=== PATIENT | female | born 2000 | race Caucasian/White ===

== ENCOUNTER 2020-01-06 20:01 | Emergency (ER) | payer BC, OTHER ==
[2020-01-06] MEDS ORDERED: KETOROLAC 30 MG/ML 1 ML VIAL IM STA (20:18)
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
--- NOTE | 2020-01-06 20:57 | XR ---
EXAMINATION TYPE: XR hand complete RT DATE OF EXAM: 01/06/2020 COMPARISON: NONE HISTORY: Injury. Pain in the thumb. TECHNIQUE: 3 views FINDINGS: I see no fracture nor dislocation. Joint spaces are normal. Soft tissues appear normal. Met acarpals are intact. IMPRESSION: Negative right hand exam.
[2020-01-06 21:36] VITALS: BP 129/91; PULSE 95; RESP 17; TEMP 98.4
== END 2020-01-06 21:36 | disposition home or self-care (01) ==
LOC: EC 20:01
DX: S69.91XA Unspecified injury of right wrist, hand and finger(s), initial encounter (principal); X58.XXXA Exposure to other specified factors, initial encounter; Y92.69 Other specified industrial and construction area as the place of occurrence of the external cause; Y99.0 Civilian activity done for income or pay
CPT/HCPCS: 99283; 29125; 96372; 73130; J1885

== ENCOUNTER → 2020-01-08 | Outpatient (CLI) | payer OTHER ==
--- NOTE | 2020-01-08 12:16 | XR ---
EXAMINATION TYPE: XR wrist complete RT DATE OF EXAM: 01/08/2020 CLINICAL HISTORY: Pain after injury. TECHNIQUE: Frontal, lateral, scaphoid, and oblique images of the right wrist are obtained. COMPARISON: Right hand x-ray 2 days earlier. FINDINGS: There is no acute fracture/dislocation evident in the right wrist. The joint spaces in the right wrist appear within normal limits. The overlying soft tissue appears unremarkable. IMPRESSION: There is no acute fracture or dislocation in the right wrist.
== END | disposition home or self-care (01) ==
LOC: RADXRMAIN 11:55
PROVIDERS: ATTEND Emergency Medicine
DX: S63.501A Unspecified sprain of right wrist, initial encounter (principal); S63.601A Unspecified sprain of right thumb, initial encounter

== ENCOUNTER → 2020-01-15 | Outpatient (CLI) | payer OTHER ==
--- NOTE | 2020-01-15 11:03 | XR ---
Right hand and wrist history: Pain, trauma 3 views of the right hand and 4 views of the right wrist submitted Bone mineralization remarkable for some minimal sclerosis at the distal pole of the lunate, joint spa javier and alignment are maintained IMPRESSION: No fracture or dislocation. Sclerosis of the lunate may be normal variant, as clinically indicated wrist MRI could be performed for additional evaluation.
== END | disposition home or self-care (01) ==
LOC: RADXRMAIN 10:27
PROVIDERS: ATTEND Emergency Medicine
DX: S63.501A Unspecified sprain of right wrist, initial encounter (principal); S63.601A Unspecified sprain of right thumb, initial encounter

== ENCOUNTER → 2020-03-11 | Outpatient (CLI) | payer BC, OTHER ==
--- NOTE | 2020-03-12 09:30 | MR ---
MR right hand without contrast HISTORY: Pain Multiplanar multisequence imaging to the right hand with attention to the first digit. There is some fluid signal at the metacarpophalangeal joint. Fluid signal is present along the flexor pollicis longus tendon synovitis. There is some subcutaneous edema at the first digit at this level. Bone marrow signal is maintained. There is no evident fracture or dislocation. IMPRESSION: Findings consistent with tenosynovitis and possible capsular sprain.
== END | disposition home or self-care (01) ==
LOC: RADMRIMAIN 13:23
PROVIDERS: ATTEND Orthopaedic Surgery
DX: M25.531 Pain in right wrist (principal); S63.521D Sprain of radiocarpal joint of right wrist, subsequent encounter; S63.418D Traumatic rupture of collateral ligament of other finger at metacarpophalangeal and interphalangeal joint, subsequent encounter; M79.644 Pain in right finger(s)

== ENCOUNTER → 2020-03-25 | Outpatient (CLI) | payer BC, OTHER ==
--- NOTE | 2020-03-26 05:19 | MR ---
EXAMINATION TYPE: MR hand RT wo con DATE OF EXAM: 03/25/2020 COMPARISON: 03/11/2020 HISTORY: Thumb pain TECHNIQUE: Multiplanar multiecho imaging of the right thumb was performed without contrast. FINDINGS: On the STIR images there is 6 mm focus of increased signal in the head of the proximal phalanx of the thumb. The flexor pollicis longus tendon is intact. There is no significant fluid around the tendon. The ligaments at the first MP joint appear intact. There is mild first MP joint fluid. There is no e vidence of soft tissue mass. Joint fluid appears improved compared to old exam. There is also decreas ed fluid around the flexor pollicis tendon compared to old exam. IMPRESSION: Small area of focal edema in the head of the proximal phalanx of the right thumb. This appears new co mpared to old exam and could be small bone bruise. Mild joint fluid at the first MP joint consistent with mild synovitis there is improved compared to l ast exam. There is clearing of fluid around the flexor pollicis tendon compared to last exam.
== END | disposition home or self-care (01) ==
LOC: RADXRMAIN 12:47
PROVIDERS: ATTEND Orthopaedic Surgery
DX: M65.9 Synovitis and tenosynovitis, unspecified (principal); M89.8X2 Other specified disorders of bone, upper arm

== ENCOUNTER → 2020-05-20 | Outpatient (CLI) | payer BC, MEDICAID, OTHER | END | disposition home or self-care (01) | LOC: LABWHC1 10:12 | PROVIDERS: ATTEND Pediatrics Pediatric Infectious Diseases | DX: Z03.818 Encounter for observation for suspected exposure to other biological agents ruled out (principal) | CPT/HCPCS: U0003; C9803 ==

== ENCOUNTER 2020-11-14 16:10 | Emergency (ER) | payer MEDICAID, OTHER ==
[2020-11-14] MEDS ORDERED: MORPHINE SULFATE/PF 10MG/10ML VL IVP PRN (16:33)
--- NOTE | 2020-11-14 16:36 | ED ---
General Adult HPI - General Chief complaint: Shortness of Breath Stated complaint: Lump under lt breast,SOB Time Seen by Provider: 11/14/20 16:19 Source: patient Mode of arrival: ambulatory Limitations: no limitations - History of Present Illness Initial comments: Dictation was produced using [employer] dictation software. please excuse any grammatical, word or spelling errors. This patient was cared for during a federal and state declared state of emergency secondary to Covid 19 Chief Complaint: 20-year-old female presents to the emergency department for pleuritic chest pain History of Present Illness: 20-year-old female she presents today for pleuritic chest pain. Patient states she was seen at [facility] emergency room yes terday where she had a workup. She states she even got a computed tomography scan of her chest that showed pneumonia and pleural fluid. She states she is been having 3 days of the symptoms. She states it is sharp and worse with deep inspiration. She was given prescription for amoxicillin however wasn't able to fill her prescriptions due to address issues. She called her primary care physician who refused to write her a new prescription without seeing her in the office. Patient refused to go to the office to be seen and that is how she ended up in the emergency department. She has any history of coughing. No history of fevers or constitutional symptoms. 2 weeks ago she traveled to [facility]. She was not tested Covid recently. The ROS documented in this emergency department record has been reviewed and confirmed by me. Those systems with pertinent positive or negative responses have been documented in the HPI. All other systems are other negative and/or noncontributory. PHYSICAL EXAM: General Impression: Alert and oriented x3, not in acute distress HEENT: Normocephalic atraumatic, extra-ocular movements intact, pupils equal and reactive to light bilaterally, mucous membranes moist. Cardiovascular: Heart regular rate and rhythm Chest: Able to complete full sentences, no retractions, no tachypnea Abdomen: abdomen soft, non-tender, non-distended, no organomegaly Musculoskeletal: Pulses present and equal in all extremities, no peripheral edema Motor: no focal deficits noted Neurological: CN II-XII grossly intact, no focal motor or sensory deficits noted Skin: Intact with no visualized rashes Psych: Normal affect and mood ED course: 20 yo female presents with pleuritic chest pain. Vital signs upon arrival are within acceptable limits. She does have a low-grade temperature 99.2. Rest of vital signs are within acceptable limits. Patient requests we contact grandfather Willian. phone number is [phone] Laboratory evaluation obtained. Mild leukocytosis 12.6. This is decreased since yesterday when patient reports she had a white count of 16. Metabolic panel is negative. Urine hCG is negative per coronavirus is negative. Chest x- ray is clear. Patient reevaluated bedside and found to be in stable medical condition. There is concern of possibly a component of pneumonia. Patient given a prescription for amoxicillin. She is told to follow up with primary care physician. Return Prevacid discussed. EKG interpretation: Ventricular rate 77, normal sinus rhythm, NH interval 134, QRS 96, QTC 425. No NH prolongation, no QTC prolongation, no ST or T-wave changes noted. . Overall, this EKG is unremarkable - Related Data Home Medications Medication Instructions Recorded Confirmed Acetaminophen Tab [Tylenol Tab] 500 - 1,000 mg PO Q6H PRN 11/14/20 11/14/20 Escitalopram [Lexapro] 10 mg PO DAILY 11/14/20 11/14/20 Immune Support Gummy 1 tab PO DAILY 11/14/20 11/14/20 Metoprolol Succinate [Toprol XL] 50 mg PO DAILY 11/14/20 11/14/20 Previous Rx's Medication Instructions Recorded Amoxicillin 1,000 mg PO Q8H 7 Days #28 capsule 11/14/20 HYDROcodone/APAP 5-325MG [Eagan 1 tab PO Q6HR PRN 3 Days #9 tab 11/14/20 5-325] Allergies Allergy/AdvReac Type Severity Reaction Status Date / Time No Known Allergies Allergy Verified 11/14/20 17:18 Review of Systems ROS Statement: Those systems with pertinent positive or pertinent negative responses have been documented in the HPI. ROS Other: All systems not noted in ROS Statement are negative. Past Medical History Past Medical History: Hypertension Additional Past Medical History / Comment(s): mthfr (mother fathers clotting disorder) History of Any Multi-Drug Resistant Organisms: None Reported Past Surgical History: Tonsillectomy Past Psychological History: No Psychological Hx Reported Smoking Status: Vaper Past Alcohol Use History: None Reported Past Drug Use History: None Reported General Exam Limitations: no limitations Course Vital Signs 11/14/20 16:11 Temperature 99.2 F Pulse Rate 89 Respiratory 17 Rate Blood Pressure 160/90 O2 Sat by Pulse 100 Oximetry Medical Decision Making - Lab Data Result diagrams: 11/14/20 16:38 11/14/20 16:38 Lab Results 11/14/20 11/14/20 11/14/20 Range/Units 16:38 16:38 16:38 WBC 12.6 H (3.8-10.6) k/uL RBC 4.44 (3.80-5.40) m/uL Hgb 12.5 (11.4-16.0) gm/dL Hct 36.6 (34.0-46.0) % MCV 82.5 (80.0-100.0) fL MCH 28.2 (25.0-35.0) pg MCHC 34.2 (31.0-37.0) g/dL RDW 12.6 (11.5-15.5) % Plt Count 391 (150-450) k/uL MPV 7.8 Neutrophils % 68 % Lymphocytes % 22 % Monocytes % 6 % Eosinophils % 2 % Basophils % 1 % Neutrophils # 8.6 H (1.3-7.7) k/uL Lymphocytes # 2.8 (1.0-4.8) k/uL Monocytes # 0.8 (0-1.0) k/uL Eosinophils # 0.3 (0-0.7) k/uL Basophils # 0.1 (0-0.2) k/uL Sodium 139 (137-145) mmol/L Potassium 4.2 (3.5-5.1) mmol/L Chloride 102 (98-107) mmol/L Carbon Dioxide 28 (22-30) mmol/L Anion Gap 9 mmol/L BUN 11 (7-17) mg/dL Creatinine 0.59 (0.52-1.04) mg/dL Est GFR (CKD-EPI)AfAm >90 (>60 ml/min/1.73 sqM) Est GFR (CKD-EPI)NonAf >90 (>60 ml/min/1.73 sqM) Glucose 101 H (74-99) mg/dL Plasma Lactic Acid Nicho 1.1 (0.7-2.0) mmol/L Calcium 9.2 (8.4-10.2) mg/dL Urine HCG, Qual (Not Detectd) Coronavirus (PCR) (Not Detectd) 11/14/20 11/14/20 Range/Units 16:39 16:50 WBC (3.8-10.6) k/uL RBC (3.80-5.40) m/uL Hgb (11.4-16.0) gm/dL Hct (34.0-46.0) % MCV (80.0-100.0) fL MCH (25.0-35.0) pg MCHC (31.0-37.0) g/dL RDW (11.5-15.5) % Plt Count (150-450) k/uL MPV Neutrophils % % Lymphocytes % % Monocytes % % Eosinophils % % Basophils % % Neutrophils # (1.3-7.7) k/uL Lymphocytes # (1.0-4.8) k/uL Monocytes # (0-1.0) k/uL Eosinophils # (0-0.7) k/uL Basophils # (0-0.2) k/uL Sodium (137-145) mmol/L Potassium (3.5-5.1) mmol/L Chloride (98-107) mmol/L Carbon Dioxide (22-30) mmol/L Anion Gap mmol/L BUN (7-17) mg/dL Creatinine (0.52-1.04) mg/dL Est GFR (CKD-EPI)AfAm (>60 ml/min/1.73 sqM) Est GFR (CKD-EPI)NonAf (>60 ml/min/1.73 sqM) Glucose (74-99) mg/dL Plasma Lactic Acid Nicho (0.7-2.0) mmol/L Calcium (8.4-10.2) mg/dL Urine HCG, Qual Not Detected (Not Detectd) Coronavirus (PCR) Not Detected (Not Detectd) Disposition Clinical Impression: Pleurisy Disposition: HOME SELF-CARE Condition: Fair Instructions (If sedation given, give patient instructions): Pleurisy (ED) Prescriptions: Amoxicillin 1,000 mg PO Q8H 7 Days #28 capsule HYDROcodone/APAP 5-325MG [Eagan 5-325] 1 tab PO Q6HR PRN 3 Days #9 tab PRN Reason: Severe Pain Is patient prescribed a controlled substance at d/c from ED?: Yes If prescribed controlled substance>3 days was MAPS reviewed?: Prescribed <3 Days Referrals: Nonstaff,Physician [REFERRING] - 1-2 days Time of Disposition: 18:03
[2020-11-14] MEDS ORDERED: fentaNYL (PF) 50 MCG/ML 5 ML AMP IVP STA (16:49)
[2020-11-14 16:55] LABS: Basophils # (A) 0.1 k/uL (0-0.2); Basophils % (A) 1 %; Eosinophils # (A) 0.3 k/uL (0-0.7); Eosinophils % (A) 2 %; HCT 36.6 % (34.0-46.0); HGB 12.5 gm/dL (11.4-16.0); Lymphocytes # (A) 2.8 k/uL (1.0-4.8); Lymphocytes % (A) 22 %; MCH 28.2 pg (25.0-35.0); MCHC 34.2 g/dL (31.0-37.0); MCV 82.5 fL (80.0-100.0); Mean Platelet Volume 7.8; Monocytes # (A) 0.8 k/uL (0-1.0); Monocytes % (A) 6 %; Neutrophils # (A) 8.6 k/uL (1.3-7.7); Neutrophils % (A) 68 %; Platelet Count 391 k/uL (150-450); RBC 4.44 m/uL (3.80-5.40); RDW 12.6 % (11.5-15.5); WBC 12.6 k/uL (3.8-10.6)
[2020-11-14] MEDS ORDERED: fentaNYL (PF) 50 MCG/ML 2 ML AMP IVP STA (17:04)
[2020-11-14 17:05] LABS: African American GFR (CKD) >90 (>60 ml/min/1.73 sqM); Anion Gap 9 mmol/L; Blood Urea Nitrogen 11 mg/dL (7-17); Calcium 9.2 mg/dL (8.4-10.2); Carbon Dioxide 28 mmol/L (22-30); Chloride 102 mmol/L (98-107); Glucose 101 mg/dL (74-99); Non-African American GFR(CKD) >90 (>60 ml/min/1.73 sqM); Potassium 4.2 mmol/L (3.5-5.1); Sodium 139 mmol/L (137-145)
--- NOTE | 2020-11-14 17:24 | XR ---
EXAMINATION TYPE: XR chest 1V portable DATE OF EXAM: 11/14/2020 COMPARISON: NONE HISTORY: Chest pain. TECHNIQUE: Single frontal view of the chest is obtained. FINDINGS: There is no focal air space opacity, pleural effusion, or pneumothorax seen. The cardiac silhouette size is within normal limits. The osseous structures are intact. IMPRESSION: No acute process.
[2020-11-14] MEDS ORDERED: LIDOCAINE 5% PATCH TOPICAL STA (17:59)
[2020-11-14 18:12] VITALS: BP 138/78; PULSE 78; RESP 18; TEMP 98.6
== END 2020-11-14 18:12 | disposition home or self-care (01) ==
LOC: EC 16:10
DX: R09.1 Pleurisy (principal); R07.81 Pleurodynia; R06.02 Shortness of breath; N63.20 Unspecified lump in the left breast, unspecified quadrant; I10 Essential (primary) hypertension; F17.290 Nicotine dependence, other tobacco product, uncomplicated; Z20.822 Contact with and (suspected) exposure to COVID-19; Z79.899 Other long term (current) drug therapy
CPT/HCPCS: 36415; 93005; 80048; 83605; 85025; 81025; 87635; 71045; 99285; 96374; 96375; J3010